=== PATIENT | female | born 1955 | race Two or more races ===

== ENCOUNTER 2025-01-29 19:18 | Emergency (ER) | payer MEDICARE ==
[~2025-01-29] VITALS: Ht 170.2 cm; Wt 86.2 kg
[2025-01-29 19:40] VITALS: BP 135/74; TEMP 98.2; O2SAT 96
[2025-01-29] MEDS ORDERED: IBUPROFEN 600 MG TABLET ONE (21:50)
[2025-01-29] MEDS: IBUPROFEN 600 MG TABLET PO ONE (21:53)
== END 2025-01-29 22:24 | disposition home or self-care (01) ==
LOC: ER 19:22
DX: G89.29 Other chronic pain (principal); M54.50 Low back pain, unspecified; I10 Essential (primary) hypertension; I70.0 Atherosclerosis of aorta; F41.9 Anxiety disorder, unspecified; Z60.2 Problems related to living alone
CPT/HCPCS: 72110-TC